=== PATIENT | male | born 1960 | race Caucasian/White ===

== ENCOUNTER 2018-08-11 12:20 | Outpatient (CLI) | payer OTHER ==
[2018-08-05 10:14] VITALS: BMI 20.9
--- NOTE | 2018-08-11 13:41 | P.PAINCN ---
History of Present Illness - Reason for Consult Consult date: 08/11/18 - History of Present Illness This is a 58 years old male with a chronic history of severe left lower extremity pain and numbness and tingling sensation, started November 2016, patient denies any initiating event, but he reported that he had lumbar laminectomy surgery done in 2000, and he did fairly well until November 2016, he reported that his pain and numbness increases with any activity especially walking, and is interfering with his quality of life, he denies any motor or sensory deficit, he denies any change in the bowel movement or urination, he tried physical therapy without any benefit, he tried Neurontin without any benefit, he gets some relief with the Motrin, he denies any symptoms in the right lower extremity , Past Medical History Past Medical History: Hypertension, Osteoarthritis (OA) Additional Past Medical History / Comment(s): STATES ARTHRITIS SINCE HE WAS A TEENAGER., DIFFICULTY WALKING - LEFT FOOT NUMB AND PAIN RADIATES UP HIS LEG. , HX EPISODE OF CONSTIPATION WITH BLEEDING. History of Any Multi-Drug Resistant Organisms: None Reported Past Surgical History: Back Surgery Additional Past Surgical History / Comment(s): BACK SURGERY (2000- L-4, L-5) Past Anesthesia/Blood Transfusion Reactions: No Reported Reaction Smoking Status: Current every day smoker - Past Family History Mother Family Medical History: No Reported History Medications and Allergies Home Medications Medication Instructions Recorded Confirmed Type Ibuprofen 600 mg PO DIRECTED PRN 08/05/18 08/05/18 History Lisinopril 20 mg PO DAILY 08/05/18 08/05/18 History Metoprolol Tartrate [Lopressor] 25 mg PO BID 08/05/18 08/05/18 History Allergies Allergy/AdvReac Type Severity Reaction Status Date / Time No Known Allergies Allergy Verified 08/05/18 10:04 Physical Exam Vitals: Vital Signs Pulse Resp Pulse Ox 08/11/18 12:42 65 16 94 L Social history : smoker , NO ETOH , NO Illegal drugs use . Review of Systems : 1- Constitutional : no chills , no fever , no night sweats , 2- Ears : no ear discharge , no change in hearing 3-Nose, Mouth ,Throat ; no bleeding gums, no sore throat , no epistaxis , 4-Cardiovascular : Denies chest pain, , no orthopnea , no palpitation, he had a history of high blood pressure 5-Respiratory : Denies cough , no dyspnea , no hemoptysis 6-Gastrointestinal :, no change in bowel habits , no coffee- ground emesis . 7-Genitourinary : No hematuria , no discharge , no incontinence, 8-Musculoskeletal : No gait dysfunction , report low back pain , 9- Neurological : no ataxia , no tremor , no sezure , 10-Psychatric , no suicidal ideation no hallucination 11- Endocrine : no cold intolerence , no polyuria , no polydypsia , 12-Hematologic : no easy bleeding , no easy brusing , 13-Allergic / immunology : no angioedema , no wheezing ,no allergic rhinitis 14-Integumentary : no brttle nails , no change hair / nails , no foot/leg ulcers . Physical Examinations : 1-Constitutional : Cooperative , not in acute distress . 2-HEENT : nech ; supple , no Lymphadenopathy , no Thyromegaly , :eyes , no icterus, no photophobia . ENT : , normal oropharynx , no Thrush 3- Respiratory : Chest clear to auscultations Bilaterally , no wheezing . 4- Cardiovascular : regular rate and rhythem , S1 , S2 , no S3 , no S4. 5- Gastrointestinal: abdomen soft no tenderness , no organomegally . 6- Genitourinary : Defferred . 7-Integumentary : No cellulitis , no ulcers , normal skin turgor , no cyanotic . 8- neurologic : Cranial nerve II to XII intact , no focal neurological deffecit 9-psychatric : alert , oriented X 3 , appropriate affect , intact judgment and insight . 10-Lymphatic : no Lymphadenopathy. 11- musculoskeltal: normal gait Lumber spine moter stegnth lower extremities ,thigh and legs 5/5 Right side , 5/5 Left side deep tendon reflexes : normal Knee Jerk , normal ankle Jerk lumber facet Loading Test, negative bilaterally Range of motion of the lumbar spine Flexion 60 degrees, extension 30 degrees strait leg raising test , negative bilaterally Fabere test negative bilaterally Normal sensation in the lower extremities Results Comments: MRI of the lumbar spine done 06/23/[address] [place] [address]= L5-S1 central discogenic protrusion towards the left side and narrowing of the spinal canal Assessment and Plan Plan: Assessment and plan=1-lumbar radiculopathy left L5-S1 dermatomal distribution, patient will be good candidate to have left L5-S1 transforaminal epidural steroid injection under fluoroscopy guidance , also patient could benefit from Lyrica 25 mg twice a day and it will be increased in the future as tolerated, patient used Neurontin in the past without any benefit. Patient blood pressure is 205/125 and explained to the patient and this is hypertension emergency and he need to monitor the emergency room to manage his blood pressure patient reported that he is very nervous about coming to the pain clinic , but I explained to him that he needs to go to the emergency room to manage his blood pressure , and explained to the patient the possible complication of hyper tension witches could affect his heart , could cause a stroke , and it will affect his kidney and his eyes Time with Patient: Greater than 30 PQRS Measure Charge Sheet Measure #130: Documentation of Current Meds in Medical Chart: Patient's medications documented in chart Measure #226: Tobacco Use: Screen & Cessation Intervention: Pt screened for tobacco use AND intervention given Measure #111: Pneumonia Vaccination: Pneumococcal vaccine NOT administered or previously given Measure #47: Advance Care Plan: Advance care planning discussed & documented, pt chose/unable to give Measure #412: Opioid Treatment Agreement: No documentation of signed opioid treatment agreement Measure #408: Opioid Therapy Follow-up Evaluation: Patient had NO f/u eval minimum every 3 months during opioid therapy Measure #317: Preventitive Care & Scrn High Bld Press & F/U: Pre-hypertensive or hypertensive BP documented, pt will f/u with PCP Measure #128: Body Mass Index (BMI) Screening & Follow-up: BMI documented within normal parameters Measure #131: Pain Assessment & Follow-up: Pain positive & plan documented, Follow-up scheduled Measure #431: Unhealthy Alcohol Use Preventative Care & Scrn: Patient not identified as an unhealthy alcohol user PQRS Narrative: Smoking Status Current every day smoker Do You Want the Pneumonia No Vaccine AT THIS TIME? Pain Intensity [Left Foot] 8 Scale Used Numeric (1 - 10) Hx Alcohol Use (MH) Yes Home Medications: Ambulatory Orders Ibuprofen 600 mg PO DIRECTED PRN 08/05/18 Lisinopril 20 mg PO DAILY 08/05/18 Metoprolol Tartrate [Lopressor] 25 mg PO BID 08/05/18
[2018-08-24] MEDS ORDERED: SODIUM CHLORIDE 0.9% 500 ML 500 ML IV SCH (07:00)
[2018-08-24] MEDS ORDERED: LACTATED RINGERS 1,000 ML IV ONE (07:58)
[2018-08-24] MEDS ORDERED: IV FLUID CONTINUATION 650 ML IV ONE (09:01)
[2018-08-24 10:28] VITALS: RESP 16
== END 2018-08-24 09:31 | disposition home or self-care (01) ==
LOC: PNWHC3 12:20
PROVIDERS: ATTEND Specialist
DX: M54.17 Radiculopathy, lumbosacral region (principal); F17.200 Nicotine dependence, unspecified, uncomplicated; Z79.899 Other long term (current) drug therapy
CPT/HCPCS: 64483; J2250; J1030; J3010; Q9966; G0463; 99211

== ENCOUNTER 2018-08-24 08:30 | Day surgery (SDC) | payer OTHER ==
[2018-08-12 10:17] VITALS: BMI 20.3
[~2018-08-24 08:30] MED LIST: LACTATED RINGERS 1,000 ML IV ONE
--- NOTE | 2018-08-24 08:55 | P.PCN ---
Date of Procedure: 08/24/18 Procedure(s) Performed: PREOPERATIVE DIAGNOSIS: Lumbar radiculopathy in left L5-S1 distribution POSTOPERATIVE DIAGNOSIS: Lumbar radiculopathy in left L5-S1 distribution PROCEDURE 1. Transforaminal epidural steroid injection under fluoroscopic guidance at left L5-S1 level. 2. Lumbar epidurogram : ANESTHESIA: Local with 1% lidocaine 3 ml , moderate sedation with intravenous Versed 2 mg and fentanyle 100 micrograms EBL: Minimal PROCEDURE INDICATION: The patient with low back pain and radiculopathy symptoms unresponsive to conservative treatment. PROCEDURE DESCRIPTION / TECHNIQUE: The patient was seen and identified in the preoperative area. Risks, benefits , complications, and alternatives were discussed with the patient. The patient agreed to proceed with the procedure and signed the consent. IV was started, and vital signs were stable. Patient was taken to the OR and time out was completed. The patient was placed in the prone position on procedure table and a pillow was placed under the abdomen to reduce lumbar lordosis. The lumbosacral area was prepped and draped in the usual sterile fashion. Critical pause was taken. Vital signs were closely monitored during the procedure. Conscious sedation was used during the procedure to decrease patient s anxiety. Using oblique fluoroscopy, the chin of the ``Adonis dog at left L5-S1 level was identified, and the skin and deeper tissues just below was localized with 1 % lidocaine. Subsequently, a 22-gauge 3.5-inch spinal needle was advanced under a tunneled view fluoroscopic guidance just underneath the chin of the ``Adonis dog at the left L5-S1. Under lateral fluoroscopy, the needle was then advanced to the posterior border of the Left L5-S1 interforaminal space. After negative aspiration of CSF and blood and with no paresthesias, 1 mL Isovue 200 contrast dye was injected excellent epidurogram and outlining of the nerve root Subsequently, 3 mL of block solution containing 40 mg Depo-Medrol and 2 mL of Lidocaine 1% was injected. Needle was removed . At the end of the procedure, skin was cleansed, and bandages were applied. COMPLICATIONS:none DISPOSITION / PLANS: The patient was placed in a supine position and transferred to the recovery area in a stable condition for observation. There was no evidence of lower extremity motor or sensory deficit after the procedure. Patient was discharged from the recovery room after meeting discharge criteria. Home discharge instructions were given to the patient by the staff. The patient was reexamined prior to discharge.
[2018-08-24] MEDS ORDERED: IV FLUID CONTINUATION 650 ML IV ONE (09:01)
--- NOTE | 2018-08-24 09:58 | FL ---
Fluoroscopy INDICATION: Pain FINDINGS: Fluoroscopy time: 7 seconds. Images obtained: 3. IMPRESSIONS: 1. Documentation of fluoroscopy.
[2018-08-24 10:28] VITALS: BP 157/94; PULSE 77; RESP 18; TEMP 98
== END 2018-08-24 11:00 | disposition home or self-care (01) ==
LOC: ORPAIN 08:30
PROVIDERS: ATTEND Anesthesiology
DX: M51.17 Intervertebral disc disorders with radiculopathy, lumbosacral region (principal); I10 Essential (primary) hypertension; M19.90 Unspecified osteoarthritis, unspecified site; F17.200 Nicotine dependence, unspecified, uncomplicated; Z79.899 Other long term (current) drug therapy
CPT/HCPCS: 62323; J2250; J1030; J3010; Q9966

== ENCOUNTER 2018-09-30 10:04 | Day surgery (SDC) | payer OTHER ==
[2018-09-28 15:35] VITALS: BMI 20.9
[~2018-09-30 10:04] MED LIST changes: -LACTATED RINGERS 1,000 ML IV ONE; +SODIUM CHLORIDE 0.9% 500 ML 500 ML IV SCH
[2018-09-30 11:12] VITALS: RESP 16; TEMP 97.5
[2018-09-30] MEDS ORDERED: LACTATED RINGERS 1,000 ML IV ONE (11:25)
[2018-09-30] MEDS ORDERED: LIDOCAINE 1% 20 ML VIAL (10MG/ML) FOR IV START INTRADERMA ONE (11:26)
--- NOTE | 2018-09-30 12:21 | P.PCN ---
Date of Procedure: 09/30/18 Description of Procedure: PREOPERATIVE DIAGNOSIS: Lumbar radiculopathy in left L5-S1 distribution POSTOPERATIVE DIAGNOSIS: Lumbar radiculopathy in left L5-S1 distribution PROCEDURE 1. Transforaminal epidural steroid injection under fluoroscopic guidance at left L5-S1 level. 2. Lumbar epidurogram : ANESTHESIA: Local with 1% lidocaine 3 ml , moderate sedation with intravenous Versed 2 mg and fentanyle 100 micrograms EBL: Minimal PROCEDURE INDICATION: The patient with low back pain and radiculopathy symptoms unresponsive to conservative treatment. PROCEDURE DESCRIPTION / TECHNIQUE: The patient was seen and identified in the preoperative area. Risks, benefits , complications, and alternatives were discussed with the patient. The patient agreed to proceed with the procedure and signed the consent. IV was started, and vital signs were stable. Patient was taken to the OR and time out was completed. The patient was placed in the prone position on procedure table and a pillow was placed under the abdomen to reduce lumbar lordosis. The lumbosacral area was prepped and draped in the usual sterile fashion. Critical pause was taken. Vital signs were closely monitored during the procedure. Conscious sedation was used during the procedure to decrease patient s anxiety. Using oblique fluoroscopy, the chin of the ``Adonis dog at left L5-S1 level was identified, and the skin and deeper tissues just below was localized with 1 % lidocaine. Subsequently, a 22-gauge 3.5-inch spinal needle was advanced under a tunneled view fluoroscopic guidance just underneath the chin of the ``Adonis dog at the left L5-S1. Under lateral fluoroscopy, the needle was then advanced to the posterior border of the Left L5-S1 interforaminal space. After negative aspiration of CSF and blood and with no paresthesias, 1 mL Isovue 200 contrast dye was injected excellent epidurogram and outlining of the nerve root Subsequently, 3 mL of block solution containing 40 mg Depo-Medrol and 2 mL of Lidocaine 1% was injected. Needle was removed . At the end of the procedure, skin was cleansed, and bandages were applied. COMPLICATIONS:none DISPOSITION / PLANS: The patient was placed in a supine position and transferred to the recovery area in a stable condition for observation. There was no evidence of lower extremity motor or sensory deficit after the procedure. Patient was discharged from the recovery room after meeting discharge criteria. Home discharge instructions were given to the patient by the staff. The patient was reexamined prior to discharge.
[2018-09-30] MEDS ORDERED: IV FLUID CONTINUATION 1,000 ML IV ONE ×2 (12:24)
[2018-09-30 12:57] VITALS: BP 169/92; PULSE 64
--- NOTE | 2018-09-30 14:31 | FL ---
Fluoroscopy INDICATION: Pain FINDINGS: Fluoroscopy time: 16 seconds. Images obtained: 1. IMPRESSIONS: 1. Documentation of fluoroscopy.
--- NOTE | 2018-10-26 18:55 | P.GSHP ---
History of Present Illness H&P Date: 09/30/18 58-year-old male presenting for transforaminal epidural steroid injection L5-S1 , radiating pain down his left leg to the dorsal aspect of his foot. VAS is 6 out of 10 in severity. Physical Exam : CVS: Regular rate and rhythm, no peripheral edema Pulmonary: Nonlabored, no wheezing Plan: Transforaminal epidural steroid injection left L5-S1 Past Medical History Past Medical History: Hypertension, Osteoarthritis (OA) Additional Past Medical History / Comment(s): STATES ARTHRITIS SINCE HE WAS A TEENAGER., DIFFICULTY WALKING - LEFT FOOT NUMB AND PAIN RADIATES UP HIS LEG. , HX EPISODE OF CONSTIPATION WITH BLEEDING. History of Any Multi-Drug Resistant Organisms: None Reported Past Surgical History: Back Surgery Additional Past Surgical History / Comment(s): BACK SURGERY (2000- L-4, L-) Past Anesthesia/Blood Transfusion Reactions: No Reported Reaction Smoking Status: Current every day smoker - Past Family History Mother Family Medical History: No Reported History Medications and Allergies Home Medications Medication Instructions Recorded Confirmed Type Ibuprofen 600 mg PO DIRECTED PRN 08/05/18 09/28/18 History Lisinopril 20 mg PO DAILY 08/05/18 09/28/18 History Pregabalin [Lyrica] 25 mg PO BID 09/28/18 09/28/18 History Allergies Allergy/AdvReac Type Severity Reaction Status Date / Time No Known Allergies Allergy Verified 09/30/18 11:07 Surgical - Exam Vital Signs Temp Pulse Resp BP Pulse Ox 97.5 F L 76 16 191/93 98 09/30/18 11:11 09/30/18 11:11 09/30/18 11:11 09/30/18 11:11 09/30/18 11:11
== END 2018-09-30 13:07 | disposition home or self-care (01) ==
LOC: ORPAIN 10:04
PROVIDERS: ATTEND Anesthesiology
DX: M54.16 Radiculopathy, lumbar region (principal); I10 Essential (primary) hypertension; M19.90 Unspecified osteoarthritis, unspecified site; F17.200 Nicotine dependence, unspecified, uncomplicated; Z79.899 Other long term (current) drug therapy
CPT/HCPCS: 62323; J2250; J1100; J3010; Q9966; 99152

== ENCOUNTER → 2018-11-03 | Outpatient (CLI) | payer OTHER ==
[2018-11-03 13:43] VITALS: BP 162/94; PULSE 85; RESP 16
--- NOTE | 2018-11-03 14:39 | P.PN ---
Subjective Progress Note Date: 11/03/18 Desi is a 58 year old gentleman who presents today for follow-up. He continues to have left leg cramping and pain. His left leg pain has been chronic in nature. He he has minimal pain across his low back on both sides but most of the pain is going into the left leg. We have trialed to transfemoral epidural steroid injections and he reports he had no relief we do one of them. He continues to use Lyrica 25 mg twice per day and is recently ran out when he feels the difference after running out of the medications. He is unsure about having any more injections because he did not have very good relief from any of the injections. He's had back surgery in 2000. He reports he continues to work. He lives on [address] so makes it very difficult for him to come to physical therapy. He continues to do home exercises daily. He says to stay as physically active as he can. Objective - Vital Signs Vital signs: Vital Signs Temp Pulse 85 11/03/18 13:37 Resp 16 11/03/18 13:37 BP 162/94 11/03/18 13:37 Pulse Ox 97 11/03/18 13:37 Intake & Output 11/02/18 11/03/18 11/03/18 18:59 06:59 18:59 Weight 70.307 kg - Exam General: Awake and alert oriented 3 no distress Respiratory exam: No audible wheezing no accessory muscle usage Cardiovascular exam: regular rate, palpable bilateral pulses, no lower extremity edema Abdominal exam: No distention nontender to palpation Cervical spine: Normal alignment, Spurling's negative, facet loading negative Lumbar spine: Loss of lumbar lordosis, normal alignment, tender to palpation over bilateral paraspinal muscles, facet loading is positive bilaterally. Straight leg raise is positive on the left. Sacroiliac joints: Nontender to palpation, SEVERO is negative, Gaenselon negative Neuro exam: Normal sensation in bilateral upper extremities, deep tendon reflexes are 2+ bilateral upper extremities. Normal sensation in bilateral lower extremities. Deep tendon reflexes are 1+ in lower extremities Psych exam: Cooperative, appropriate mood Assessment and Plan Assessment: Lumbar radiculopathy Plan: Plan is to refill the patient's Lyrica 25 mg twice a day. I will also given a referral to see Dr. Brito for a second evaluation. She'll follow-up in 3 months time
== END | disposition home or self-care (01) ==
LOC: PNWHC3 12:55
PROVIDERS: ATTEND Hospitalist
DX: M54.16 Radiculopathy, lumbar region (principal); Z79.899 Other long term (current) drug therapy; Z98.890 Other specified postprocedural states
CPT/HCPCS: 99211

== ENCOUNTER → 2019-07-07 | Outpatient (CLI) | payer OTHER ==
--- NOTE | 2019-07-07 20:59 | MR ---
EXAMINATION TYPE: MR lumbar spine wo con DATE OF EXAM: 07/07/2019 COMPARISON: None HISTORY: Back pain TECHNIQUE: Multiplanar, multisequence images of the lumbar spine were acquired. L1-L2: Circumferential posterior extension of disc material causes mild anterior mass effect on the t hecal sac. No significant central stenosis or foraminal encroachment. L2-L3: Normal disc appearance without desiccation. No herniation, protrusion or disc bulging. No ca nal stenosis is present. Foramina are patent bilaterally. L3-L4: Circumferential disc bulge causes mild anterior mass effect on the thecal sac. No central sten osis. No significant foraminal encroachment. L4-L5: Posterior broad-based disc bulge causes mild anterior mass effect on the thecal sac. No signif icant spinal stenosis. Facet arthropathy with hypertrophy of the ligamentum flavum causes posterior l ateral mass effect on the thecal sac. Circumferential extension of disc material results in foraminal encroachment greater on the right, right lateral disc herniation is suspected. L5-S1: No significant spinal stenosis. Facet arthropathy changes present. There is a left posterior p aracentral disc herniation causing anterolateral mass effect on the thecal sac towards the left and l ikely mass effect on the left greater than right S1 nerve roots. Circumferential extension endplate d isc complex results in foraminal encroachment left greater than right. Lumbar segments are intact. No paraspinal masses are identified. Conus medullaris has a normal appe arance. Lumbar vertebral bodies show preserved height and alignment. There is loss of disc height sig nal greatest at L5-S1 and L1-2 compatible disc desiccation and degenerative disc disease. There is mu ltilevel spondylosis with endplate discogenic marrow signal change. IMPRESSION: Disc herniation L5-S1, correlate for left S1 radiculopathy. Lateral disc herniation L4-5, correlate f or L4 radiculopathy on the right. Multilevel facet arthropathy. Degenerative disc disease.
== END ==
LOC: RADMRIMAIN 12:30
PROVIDERS: ATTEND Family Medicine
DX: M51.27 Other intervertebral disc displacement, lumbosacral region (principal); M51.36 Other intervertebral disc degeneration, lumbar region; M46.97 Unspecified inflammatory spondylopathy, lumbosacral region
CPT/HCPCS: 72148